=== PATIENT | male | born 1980 | race American Indian/Alaskan Native ===

== ENCOUNTER 2017-01-08 04:49 | Emergency (ER) | payer OTHER ==
[2017-01-08 05:40] LABS: Basophils % (Auto) 1.1 % (0.0-1.8); Eosinophils % (Auto) 3.2 % (0.0-4.3); Hematocrit 42.1 % (35.5-45.6); Hemoglobin 14.9 gm/dl (11.8-15.2); Mean Corpuscular HGB Conc 35 % (32-34); Mean Corpuscular Hemoglobin 30 pg (28-32); Mean Corpuscular Volume 84 fl (84-94); Platelet Count 182 K/mm3 (140-440); Red Blood Count 5.04 M/mm3 (3.65-5.03); Red Cell Distribution Width 15.6 % (13.2-15.2); White Blood Count 7.4 K/mm3 (4.5-11.0)
[2017-01-08 06:00] LABS: BUN/Creatinine Ratio 19.09; Blood Urea Nitrogen 21 mg/dL (9-20); Calcium 9.5 mg/dL (8.4-10.2); Carbon Dioxide 23 mmol/L (22-30); Glucose 101 mg/dL (75-100); Sodium 138 mmol/L (137-145)
[2017-01-08 06:14] LABS: Anion Gap 22 mmol/L; Potassium 5.4 mmol/L (3.6-5.0)
[2017-01-08] MEDS ORDERED: ZOFRAN IV ONE (08:04)
[2017-01-08] MEDS ORDERED: MORPHINE IV ONE (08:04)
--- NOTE | 2017-01-08 13:44 | Emergency Department Report ---
HPI - General Chief Complaint: Chest Pain Time Seen by Provider: 01/08/17 07:58 ED Past Medical Hx - Past Medical History Previous Medical History?: Yes Hx Hypertension: Yes Additional medical history: heart murmur. enlarged heart-denies CHF. - Surgical History Past Surgical History?: Yes Additional Surgical History: Heart cath in 2012-negative(no stents) - Social History Smoking Status: Current Every Day Smoker Substance Use Type: Alcohol - Medications Home Medications: Home Medications Medication Instructions Recorded Confirmed Last Taken Type Hydrochlorothiazide [HCTZ] 25 mg PO QDAY 01/08/17 01/08/17 Unknown History amLODIPine [Norvasc] 10 mg PO DAILY 01/08/17 01/08/17 Unknown History traMADol [Ultram] 50 mg PO Q6HR PRN #12 tablet 01/08/17 Unknown Rx ED Review of Systems ROS: Stated complaint: CHEST PAIN Other details as noted in HPI Physical Exam - Physical Exam Vital Signs: Vital Signs 01/08/17 01/08/17 01/08/17 05:22 05:29 06:28 Temperature 98.6 F Pulse Rate 73 69 Respiratory 15 15 19 Rate Blood Pressure 167/108 Blood Pressure 157/105 [Left] O2 Sat by Pulse 98 98 97 Oximetry 01/08/17 01/08/17 01/08/17 07:16 10:00 13:11 Temperature 98 F 98.2 F 98.2 F Pulse Rate 69 61 61 Respiratory 18 17 17 Rate Blood Pressure Blood Pressure 148/111 140/92 158/96 [Left] O2 Sat by Pulse 99 99 97 Oximetry ED Course Vital Signs 01/08/17 01/08/17 01/08/17 05:22 05:29 06:28 Temperature 98.6 F Pulse Rate 73 69 Respiratory 15 15 19 Rate Blood Pressure 167/108 Blood Pressure 157/105 [Left] O2 Sat by Pulse 98 98 97 Oximetry 01/08/17 01/08/17 01/08/17 07:16 10:00 13:11 Temperature 98 F 98.2 F 98.2 F Pulse Rate 69 61 61 Respiratory 18 17 17 Rate Blood Pressure Blood Pressure 148/111 140/92 158/96 [Left] O2 Sat by Pulse 99 99 97 Oximetry ED Medical Decision Making - Lab Data Result diagrams: 01/08/17 05:30 01/08/17 05:30 Critical care attestation.: If time is entered above; I have spent that time in minutes in the direct care of this critically ill patient, excluding procedure time. ED Disposition Clinical Impression: Atypical chest pain Disposition: -01 TO HOME OR SELFCARE Is pt being admited?: No Does the pt Need Aspirin: No Condition: Stable Instructions: Chest Pain (ED) Prescriptions: traMADol [Ultram] 50 mg PO Q6HR PRN #12 tablet PRN Reason: Pain Referrals: PRIMARY CARE,MD [Primary Care Provider] - 3-5 Days
[2017-01-08 14:07] VITALS: BP 148/91
== END 2017-01-08 14:07 | disposition home or self-care (01) ==
LOC: ED 04:49
DX: R07.89 Other chest pain (principal); I10 Essential (primary) hypertension; F17.210 Nicotine dependence, cigarettes, uncomplicated
CPT/HCPCS: 36415; 80048; 83880; 84484; 85025; 93005; 93010; 96374; 96375; 99284; J2270; J2405